=== PATIENT | female | born 1985 | race Caucasian/White ===

== ENCOUNTER 2022-09-11 14:34 | Emergency (ER) | payer MEDICAID, SELFPAY ==
[2022-09-11 14:38] VITALS: BP 144/81; PULSE 85; RESP 16; TEMP 36.6; O2SAT 99; BMI 25.8
--- NOTE | 2022-09-23 13:39 | DCPLANNER ---
TCM called patient due to no primary care physician - no answer at this time.
== END 2022-09-11 17:17 | disposition left against medical advice (07) ==
PROVIDERS: Emergency Provider Family Medicine
DX: Z53.21 Procedure and treatment not carried out due to patient leaving prior to being seen by health care provider (principal)

== ENCOUNTER 2022-09-11 20:37 | Emergency (ER) | payer MEDICAID, SELFPAY ==
[2022-09-11 21:05] VITALS: BP 161/88; PULSE 71; RESP 18; TEMP 36.8; O2SAT 100
--- NOTE | 2022-09-11 22:12 | W.ED.DENTAL ---
HPI - Dental/Oral General: Chief complaint: Dental/Oral Stated complaint: tooth pain, fever Time Seen by Provider: 09/11/22 21:45 History of Present Illness: Patient is a 37-year-old female who comes to the ED with dental pain. Dental pain started in the last 2 days and patient states that she broke a piece of her tooth off 2 days ago. Dental pain is located in the back upper and lower molars. She rates her pain a 10 out of 10. Patient has been calling around to get set up with a dentist. Associated symptoms: Denies fever(s) or odynophagia Review of Systems Const: Denies: fever(s), chills or fatigue Eyes: Denies: change in vision or eye discomfort ENMT: Reports: dental pain; Denies: throat pain, odynophagia, nasal discharge or nasal congestion Card: Denies: chest pain, palpitations, edema, swelling of feet/ankles, dyspnea on exertion or orthopnea Resp: Denies: dyspnea, productive cough or non-productive cough GI: Denies: abdominal pain, nausea, vomiting, diarrhea, constipation or hematochezia : Denies: flank pain, dysuria or hematuria Musc: Denies: neck pain, back pain or extremity swelling Skin/Breast: Denies: rash or new lesions Neuro: Denies: headache(s), numbness in extremities or weakness in extremities PFS ED PFSH: Medical History (Updated 09/12/22 @ 01:45 by MANUEL Titus) No pertinent family history Surgical History (Updated 09/12/22 @ 01:45 by MANUEL Titus) No pertinent past surgical history Physical Exam Const: COMMON NORMALS: patient oriented x3 HENMT: COMMON NORMALS: normocephalic HEAD & SCALP: normocephalic MOUTH: Normal oral and palatal mucosa present THROAT: posterior oropharynx normal and uvula midline Eye: GENERAL EYE: appearance normal, both eyes and all related structures Neck/C-Spine: COMMON NORMALS: supple GENERAL: Yes normal visual inspection Lymph: LYMPHATIC: no lymphadenopathy noted Resp: COMMON NORMALS: normal respiratory effort, No retractions, No use of accessory muscles and clear to auscultation bilaterally AUSCULTATION: clear to auscultation bilaterally Cardio: COMMON NORMALS: regular rate, regular rhythm, S1 normal heart sound present, S2 normal heart sound present, No gallops present (Cardio), No clicks present (Cardio), No murmurs present (Cardio) and Peripheral pulses 2+ throughout RATE: regular rate RHYTHM: regular rhythm HEART SOUNDS: S1 normal heart sound present and S2 normal heart sound present PERIPHERAL PULSES: Peripheral pulses 2+ throughout GI: COMMON NORMALS: Normal to inspection, nondistended, normoactive bowel sounds present, Soft to palpation, non-tender and no masses PALPATION: Yes Soft to palpation : COMMON NORMALS: Yes no CVA tenderness BLADDER/KIDNEY EXAM: Yes no CVA tenderness Back/Pelvis: COMMON NORMALS: no CVA tenderness Extremity: GENERAL: Yes normal exam except as noted Neuro: COMMON NORMALS: patient oriented x3 MOTOR EXAM: 5/5 motor strength present throughout Skin: COMMON NORMALS: no rashes or lesions noted GENERAL SKIN EXAM: no rashes or lesions noted and dry skin Course Vital Signs: Vital signs: Vital Signs Temperature 98.3 F 09/11/22 21:05 Pulse Rate 71 09/11/22 21:05 Respiratory Rate 18 09/11/22 21:05 Blood Pressure 161/88 09/11/22 21:05 Pulse Oximetry 100 09/11/22 21:05 Oxygen Delivery Me thod Room Air 09/11/22 21:05 MDM - Dental/Oral Medical Decision Making Patient is a 37-year-old female who comes to the ED with dental pain. Dental pain started in the last 2 days and patient states that she broke a piece of her tooth off 2 days ago. Dental pain is located in the back upper and lower molars. She rates her pain a 10 out of 10. Patient has been calling around to get set up with a dentist. Vitals are stable. Exam is benign. Patient was given dose of hydrocodone clindamycin here in the ED. Patient diagnosed with a tooth ache and was stable for discharge home and sent home with a prescription for ibuprofen 800 mg tablets and clindamycin. Return to ED precautions given. She was told to contact dentist to get appointment set up with them for further treatment of dental pain. Patient understood and agreed with plan. Discharge Plan Discharge Patient Disposition: Home Clinical Impression: Toothache Condition: Stable Prescriptions: New ibuprofen 800 mg tablet 800 mg PO Q8H PRN (Reason: pain) Qty: 20 0RF clindamycin HCl 150 mg capsule 300 mg PO QID 7 Days Qty: 56 0RF Lidocaine Viscous 2 % solution 1 applic mucous membrane Q6H PRN (Reason: pain) Qty: 100 0RF Rx Instructions: Swish 5 mL in mouth every 6 hours as needed pain Discharge Orders: Discharge ED (Routine); Ordered 09/11/22 Ordered By: Ha Khanna Discharge Diet: Regular Discharge Activity: Increase activity as tolerated Patient Instructions: Toothache (ED) Activity Restrictions/Additional Instructions: Follow-up with dentist as soon as possible to have dental pain treated. Take medications as prescribed. Return to the ER or your medical provider if condition worsens. Please read and understand discharge instructions. Thank you for choosing [facility] for your healthcare needs today. Please realize this is an emergency room and that we are providing you with a medical screening exam and this may not be complete and all inclusive of all the testing and or work up that you may need to determine your ailment or severity of your illness. It is very important that you follow up as instructed or that you return to the Emergency Department should you have concerns or if your condition changes or worsens in any way. Coding Level of Care Code ED [employer] Director for Derick Rivas
[2022-09-11] MEDS: HYDROcodone-acetaminophen 7.5-325 mg Tablet 1 TAB PO (22:20)
[2022-09-11] MEDS: clindamycin 150 mg Capsule 300 MG PO (22:20)
== END 2022-09-11 22:22 | disposition home or self-care (01) ==
PROVIDERS: Emergency Provider Physician Assistant
DX: K08.89 Other specified disorders of teeth and supporting structures (principal)
CPT/HCPCS: 99283

== ENCOUNTER 2023-01-05 11:34 | Emergency (ER) | payer MEDICAID, SELFPAY ==
[2023-01-05 11:36] VITALS: BP 139/85; PULSE 94; RESP 16; TEMP 36.8; O2SAT 98; BMI 31.1
--- NOTE | 2023-01-05 11:50 | W.ED.DENTAL ---
HPI - Dental/Oral General: Chief complaint: Dental/Oral Stated complaint: oral pain , broekn tooth Time Seen by Provider: 01/05/23 11:46 Source: patient Mode of arrival: ambulatory Limitations: no limitations History of Present Illness: Patient is a 37-year-old female presents to ED today with a complaint of tooth pain and possible infection. Patient states a few days ago her left upper back molar broke off and since then she has been experiencing significant discomfort. She feels like she has some swelling which makes her concerned for infection. She does not have a dentist. He has not noted any obvious facial swelling or neck swelling. She is eating, drinking, swallowing, controlling secretions normally. No fevers. No headache. MD Complaint: tooth pain and tooth injury Location: Tooth # (16) Teeth map: 1. Onset (ago): day(s) Duration: constant Severity: severe Relieving factors: nothing Exacerbating factors: chewing Context: history of dental caries and poor dental care Associated symptoms: Reports no associated symptoms; Denies ear or mastoid pain, fever(s) or odynophagia Treatment prior to arrival: oral analgesic Review of Systems Const: Denies: fever(s), chills, body aches, fatigue or malaise ENMT: Reports: dental pain; Denies: throat pain, enlarged tonsils, odynophagia, hoarseness, swelling of lips/tongue, oral sores, bleeding gums, ear or mastoid pain, nasal discharge, nasal congestion or sinus pain Card: Denies: chest pain GI: Denies: nausea or vomiting Musc: Denies: neck pain Neuro: Denies: headache(s) [facility] ED PFSH: Medical History No pertinent family history Surgical History No pertinent past surgical history Physical Exam Const: COMMON NORMALS: no acute distress, patient oriented x3, no limitations and alert HENMT: FACE & SINUS: normal facial exam; no erythema, no edema and no fluctuance TEETH & GINGIVA: Yes caries and Yes poor dentition TEETH & GINGIVA IMAGES: 1. fractured back molar THROAT: posterior oropharynx normal, tonsils normal and uvula midline Eye: GENERAL EYE: appearance normal, both eyes and all related structures Neck/C-Spine: COMMON NORMALS: full ROM and no lymphadenopathy GENERAL: Yes normal visual inspection, No anterior neck swelling and No submandibular swelling Resp: COMMON NORMALS: normal respiratory effort and clear to auscultation bilaterally AUSCULTATION: clear to auscultation bilaterally Cardio: COMMON NORMALS: regular rate and regular rhythm RATE: regular rate RHYTHM: regular rhythm Neuro: COMMON NORMALS: patient oriented x3 SENSORIUM/ORIENTATION: Yes alert Course Vital Signs: Vital signs: Vital Signs Temperature 98.3 F 01/05/23 11:36 Pulse Rate 94 01/05/23 11:36 Respiratory Rate 16 01/05/23 11:36 Blood Pressure 139/85 01/05/23 11:36 Pulse Oximetry 98 01/05/23 11:36 Oxygen Delivery Me thod Room Air 01/05/23 11:36 MDM - Dental/Oral Medical Decision Making Please on antibiotics and have her follow-up with a dentist as soon as possible. Return to ED precautions given. Discharge Plan Discharge Patient Disposition: Home Clinical Impression: Fracture of tooth, Toothache Condition: Stable Prescriptions: New Peridex 0.12 % mouthwash 15 ml buccal BID Qty: 473 0RF Rx Instructions: Swish 60 seconds then spit BID penicillin V potassium 500 mg tablet 500 mg PO Q8H 7 Days Qty: 21 0RF No Action ibuprofen 800 mg tablet 800 mg PO Q8H PRN (Reason: pain) Qty: 20 0RF Discharge Orders: Discharge ED (Routine); Ordered 01/05/23 Ordered By: Jaquelin Bradley Referrals: Kwabena Fernandez MD [Primary Care Provider] - Patient Instructions: Toothache (ED) Coding Level of Care Code ED Supply Chain Systems Manager for Derick Rivas
== END 2023-01-05 12:05 | disposition home or self-care (01) ==
PROVIDERS: Emergency Provider Physician Assistant; PCP Family Medicine
DX: M84.48XA Pathological fracture, other site, initial encounter for fracture (principal)
CPT/HCPCS: 99283

== ENCOUNTER 2023-01-17 11:23 | Emergency (ER) | payer MEDICAID, SELFPAY ==
[2023-01-17 11:32] VITALS: BP 141/93; PULSE 106; RESP 18; TEMP 36.7; O2SAT 96; BMI 33.2
--- NOTE | 2023-01-17 12:27 | ED_ITS ---
HPI - Dental/Oral General: Chief complaint: Dental/Oral Stated complaint: tooth pain Time Seen by Provider: 01/17/23 12:13 Source: patient Mode of arrival: ambulatory Limitations: no limitations History of Present Illness: 37-year-old female presents to the ER today for swelling of the left jaw and den shirley pain. Patient was seen couple of weeks ago for pain and swelling in the left upper teeth. Patient took amoxicillin and got an appointment with a dentist but the dentist could not see her until February 16 at 11 AM. Patient reports about a week ago the bottom started bothering her. Patient reports she has a hole in the back tooth. She has now developed swelling across the entire jaw and has pain radiating into her ear. She is scheduled tomorrow with ENT to be fitted for hearing aids and is concerned that that is going to cause issues with that. Denies any fever or chills. Patient is taking all [id number] medication she can. 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 Review of Systems General: Reports: 10 or more systems reviewed and unremarkable except in HPI and below PFSH ED PFSH: Medical History No pertinent family history Surgical History No pertinent past surgical history Physical Exam Const: COMMON NORMALS: average body habitus, patient oriented x3, no limitations, healthy appearing, alert and well nourished HENMT: COMMON NORMALS: normocephalic, atraumatic, external ears normal, Normal external nose present and oropharynx normal; dentition not normal and gingiva not normal HEAD & SCALP: normocephalic and atraumatic NOSE: Normal external nose present EXTERNAL EAR: Yes external ears normal TEETH & GINGIVA: Yes abnormal tooth and associated gingiva and Yes poor dentition TEETH & GINGIVA IMAGES: 1. fracture/hole in tooth- gingival swelling also noted OTHER: Patient noted to have mild swelling of the left lower jaw. Neck/C-Spine: COMMON NORMALS: full ROM OTHER: Mild lymphadenopathy noted to the left side in the area of jaw swelling. Resp: COMMON NORMALS: normal respiratory effort, No retractions and clear to auscultation bilaterally AUSCULTATION: clear to auscultation bilaterally Cardio: COMMON NORMALS: regular rate, regular rhythm and No murmurs present (Cardio) RATE: regular rate RHYTHM: regular rhythm Extremity: COMMON NORMALS: normal to inspection and full ROM Neuro: COMMON NORMALS: patient oriented x3 SENSORIUM/ORIENTATION: Yes alert Psych: COMMON NORMALS: mental status grossly normal and Normal thought process present THOUGHT PROCESS: Normal thought process present OTHER: tearful Skin: COMMON NORMALS: no rashes or lesions noted and no wounds GENERAL SKIN EXAM: no rashes or lesions noted Course ED course: Patient presents to the ER today for dental pain on the left lower jaw. Patient reports she has a fractured tooth with abscess. She has an appointment in January however the pain is worsening. She was seen 2 weeks ago for tooth in a different area. Patient was prescribed amoxicillin and finished that. She did make the dental appointment but it was more than a month out. Patient is scheduled for hearing aid placement tomorrow and is concerned the pain is going to cause issues. She is taking [id number] medications with minimal improvement. Patient is noted to have swelling of the left lower jaw. Vital Signs: Vital signs: Vital Signs Temperature 98.1 F 01/17/23 11:32 Pulse Rate 106 H 01/17/23 11:32 Respiratory Rate 18 01/17/23 11:32 Blood Pressure 141/93 01/17/23 11:32 Pulse Oximetry 96 01/17/23 11:32 Oxygen Delivery Me thod Room Air 01/17/23 11:32 MDM - Dental/Oral Medical Decision Making Patient recently finished amoxicillin. This all began slightly after finishing the amoxicillin. We will start patient on clindamycin. We will also send in Toradol for pain. Patient can take Tylenol alternating with the Toradol. Apply ice. Use mouthwash as previously prescribed. Keep dental appointment and follow-up. Return to the ER with any new or worsening symptoms. Patient verbalized understanding and was in agreement with the treatment plan. No radiology studies performed this visit Critical Care Time Critical Care Time: Critical Care Time: No Discharge Plan Discharge Patient Disposition: Home Clinical Impression: Dental abscess Fracture of tooth Qualifiers: Encounter type: initial encounter Fracture type: closed Qualified Code(s): S02.5XXA - Fracture of tooth (traumatic), initial encounter for closed fracture Condition: Stable Prescriptions: New clindamycin HCl 300 mg capsule 300 mg PO Q6H 7 Days Qty: 28 0RF ketorolac 10 mg tablet 10 mg PO Q8H PRN (Reason: pain) 3 Days Qty: 12 0RF No Action Peridex 0.12 % mouthwash 15 ml buccal BID Qty: 473 0RF Rx Instructions: Swish 60 seconds then spit BID ibuprofen 800 mg tablet 800 mg PO Q8H PRN (Reason: pain) Qty: 20 0RF Discharge Orders: Discharge ED (Routine); Ordered 01/17/23 Ordered By: Ginny San Referrals: Kwabena Fernandez MD [Primary Care Provider] - Discharge Diet: Soft Mechanical Discharge Activity: Resume usual activity Patient Instructions: Opioid Safety, Pain Management Activity Restrictions/Additional Instructions: Take clindamycin as prescribed. Take ketorolac for the next few days. Okay to also take Tylenol alternated with the ketorolac for pain. Apply ice to reduce swelling. Use mouthwash as previously prescribed. Follow-up with dentist at already scheduled appointment. Coding Level of Care Code ED Commodity Loan Clerk for Derick Rivas
== END 2023-01-17 12:38 | disposition home or self-care (01) ==
PROVIDERS: Emergency Provider Physician Assistant; PCP Family Medicine
DX: K04.7 Periapical abscess without sinus (principal); M84.48XA Pathological fracture, other site, initial encounter for fracture
CPT/HCPCS: 99284

== ENCOUNTER 2024-01-31 15:30 | Emergency (ER) | payer SELFPAY ==
[2024-01-31 15:45] VITALS: BP 153/66; PULSE 90; RESP 18; TEMP 36.7; O2SAT 98; BMI 27.9
--- NOTE | 2024-01-31 15:47 | ECG_ITS ---
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
--- NOTE | 2024-01-31 16:57 | XRR_ITS ---
PROCEDURE INFORMATION: Exam: XR Chest Exam date and time: 01/31/2024 5:09 PM Age: 38 years old Clinical indication: Cough and shortness of breath; Additional info: Congestion/cough TECHNIQUE: Imaging protocol: Radiologic exam of the chest. Views: 1 view. COMPARISON: No relevant prior studies available. FINDINGS: Lungs: Peribronchial wall thickening. No consolidation. Pleural spaces: Unremarkable. No pleural effusion. No pneumothorax. Heart/Mediastinum: Unremarkable. No cardiomegaly. Bones/joints: Unremarkable. XR/XR chest 1V portable [id number] IMPRESSION: Sequela of bronchitis.
[2024-01-31 19:31] VITALS: BP 146/87; PULSE 78; O2SAT 99
[2024-01-31 19:33] VITALS: O2SAT 98
[2024-01-31] MEDS: dexamethasone 10 mg/mL INJ IM (20:09)
--- NOTE | 2024-01-31 20:13 | ED_ITS ---
HPI - COVID General: Chief Complaint: COVID symptoms Stated Complaint: congestion (2wks) Time Seen by Provider: 01/31/24 19:21 Source: patient Mode of arrival: ambulatory Limitations: no limitations Triage information: Has fever, cough or shortness of breath . Exposure to COVID + person last 14 days History of Present Illness: Patient is a 38-year-old female who presents to the emergency department complaining of a week and a half of chest congestion. She states that she was exposed to multiple sick contacts at home, and while they have since recovered her symptoms have lingered. States that she is starting to cough, though it is nonproductive and she feels like there is stuff stuck in her chest. She is also reporting nasal congestion that is causing ear pain. She has only taken [id number] DayQuil and a mucolytic that she does not know the name of. Does not report a history of allergies and does not take anything for allergies. She states that she is feeling short of breath though she thinks it is from the congestion. No chest pain, fevers, chills, or other symptoms reported at this time. MD complaint: other (Known exposure to unspecified viral illness) Prior covid testing: no COVID 19 common symptoms: positive non-productive cough, dyspnea and nasal congestion; negative fever(s), chills, fatigue, headache(s), throat pain, nausea, vomiting or diarrhea COVID 19 other sytmptoms: negative chest pain Onset (ago): week(s) Severity: mild COVID Results: Coronavirus (PCR) Negative (Negative) 01/31/24 19:28 Related Data Previous Rx's Medication Instructions Recorded ibuprofen 800 mg tablet 800 mg PO Q8H PRN pain #20 tabs 09/11/22 chlorhexidine gluconate 0.12 % 15 ml buccal BID #473 mL 01/05/23 mouthwash (Peridex) albuterol sulfate 90 mcg/actuation 1 inh inhalation Q6H PRN shortness 01/31/24 aerosol inhaler of breath or wheezing #6.7 grams cetirizine 10 mg tablet (Zyrtec) 10 mg PO DAILY PRN allergy 01/31/24 symptoms #20 tabs fluticasone propionate 50 2 spray intranasal DAILY PRN nasal 01/31/24 mcg/actuation nasal congestion #16 grams spray,suspension Allergies Allergy/AdvReac Type Severity Reaction Status Date / Time No Known Allergies Allergy Verified 01/31/24 15:48 Review of Systems General: Reports: 10 or more systems reviewed and unremarkable except in HPI and below Const: Denies: fever(s), chills or fatigue Eyes: Denies: change in vision ENMT: Reports: ear or mastoid pain and nasal congestion; Denies: throat pain or nasal discharge Card: Denies: chest pain, palpitations, swelling of feet/ankles or lightheadedness Resp: Reports: dyspnea, non-productive cough and chest congestion; Denies: wheezing GI: Denies: abdominal pain, nausea, vomiting, diarrhea or constipation : Denies: flank pain, difficulty voiding, dysuria or urinary frequency Musc: Denies: neck pain, back pain or joint pain Skin/Breast: Denies: rash Neuro: Denies: headache(s), numbness in extremities or weakness in extremities PFSH ED PFSH: Medical History No pertinent family history Surgical History No pertinent past surgical history Physical Exam Const: COMMON NORMALS: no acute distress and no limitations GENERAL APPEARANCE: cooperative, comfortable and well developed ORIENTATION/CONSCIOUSNESS: Yes awake HENMT: COMMON NORMALS: normocephalic, atraumatic, hearing grossly normal bilaterally, external ears normal, EAC's normal, Normal external nose present, Normal nasal mucous membranes and turbinates present, moist oral mucous membranes and oropharynx normal HEAD & SCALP: normocephalic and atraumatic NOSE: Normal external nose present and Normal nasal mucous membranes and turbinates present EXTERNAL EAR: Yes external ears normal EXTERNAL AUDITO RY CANAL: EAC's normal TYMPANIC MEMBRANE: TM abnormal TM laterality: bilateral bulging Eye: COMMON NORMALS: Equal, round and reactive pupils present, EOMs intact bilaterally and conjunctivae normal CONJUNCTIVA: Yes conjunctivae normal PUPIL: Yes Equal, round and reactive pupils present Neck/C-Spine: COMMON NORMALS: full ROM, no lymphadenopathy, supple and no JVD Resp: COMMON NORMALS: normal respiratory effort, No retractions, No use of accessory muscles and clear to auscultation bilaterally EFFORT & INSPECTION: Yes Actively coughing non-productive AUSCULTATION: clear to auscultation bilaterally Cardio: COMMON NORMALS: no JVD, regular rate, regular rhythm, No clicks present (Cardio), No murmurs present (Cardio) and No rub (Cardio) RATE: regular rate RHYTHM: regular rhythm GI: COMMON NORMALS: Normal to inspection, nondistended, normoactive bowel sounds present, Soft to palpation and non-tender AUSCULTATION: Yes normoactive bowel sounds PALPATION: Yes Soft to palpation RECTAL EXAM: deferred Extremity: COMMON NORMALS: normal to inspection, full ROM and capillary refill normal Psych: COMMON NORMALS: mental status grossly normal and Normal thought process present THOUGHT PROCESS: Normal thought process present Skin: COMMON NORMALS: no rashes or lesions noted GENERAL SKIN EXAM: no rashes or lesions noted Course Vital Signs: Vital signs: Vital Signs Temperature 98.0 F 01/31/24 15:45 Pulse Rate 73 01/31/24 20:28 Respiratory Rate 18 01/31/24 20:28 Blood Pressure 146/87 01/31/24 19:31 Pulse Oximetry 100 01/31/24 20:28 Oxygen Delivery Me thod Room Air 01/31/24 20:28 [facility] Medical Decision Making Patient seen for a week and a half of upper respiratory symptoms, after exposure to viral illness. States her primary complaint is congestion in her chest and face, has only taken DayQuil and a mucolytic [id number]. X-ray today showed evidence of a bronchitis, likely viral due to her nonproductive cough and normal vitals. She also notes significant improvement after receiving DuoNeb treatment here and receiving a shot of Decadron, so she is encouraged to treat symptomatically at home and return if she starts having production of her cough or other concerning symptoms of illness. Will give her albuterol inhaler to use as needed, as well as Flonase and Zyrtec. Return precautions given. Lab Data Radiology Impressions Chest X-Ray 01/31/24 16:57 IMPRESSION: Sequela of bronchitis. Laboratory Results Coronavirus (PCR) Negative (Negative) 01/31/24 19:28 Influenza A (PCR) Negative (Negative) 01/31/24 19:28 Influenza Type B (PCR) Negative (Negative) 01/31/24 19:28 RSV (PCR) Negative (Negative) 01/31/24 19:28 Coronavirus (PCR) Negative (Negative) 01/31/24 19:28 All radiology interpretation(s) finalized by discharge Discharge Plan Discharge Patient Disposition: Home Clinical Impression: Viral bronchitis Reactive airway disease Qualifiers: Asthma severity: mild Asthma persistence: intermittent Asthma complication type: uncomplicated Qualified Code(s): J45.20 - Mild intermittent asthma, uncomplicated Condition: Stable Prescriptions: New fluticasone propionate 50 mcg/actuation spray,suspension 2 spray intranasal DAILY PRN (Reason: nasal congestion) Qty: 16 0RF Rx Instructions: administer into each nostril cetirizine [Zyrtec] 10 mg tablet 10 mg PO DAILY PRN (Reason: allergy symptoms) Qty: 20 0RF albuterol sulfate 90 mcg/actuation HFA aerosol inhaler 1 inh inhalation Q6H PRN (Reason: shortness of breath or wheezing) Qty: 6.7 0RF No Action Peridex 0.12 % mouthwash 15 ml buccal BID Qty: 473 0RF Rx Instructions: Swish 60 seconds then spit BID ibuprofen 800 mg tablet 800 mg PO Q8H PRN (Reason: pain) Qty: 20 0RF Discharge Orders: Discharge ED (Routine); Ordered 01/31/24 Ordered By: Claus Wan Discharge Diet: Usual diet Discharge Activity: Increase activity as tolerated Patient Instructions: Reactive Airways Disease (ED) Activity Restrictions/Additional Instructions: Use inhaler as needed. Flonase for nasal congestion and take Zyrtec for allergy relief. With any worsening of condition or new or concerning symptoms, please return or follow-up with your primary care provider as discussed. Coding Level of Care Code ED Snap Attacher for Derick Rivas
[2024-01-31 20:14] LABS: Covid PCR NEGATIVE (Negative); Influenza A NEGATIVE (Negative); Influenza B NEGATIVE (Negative); Respiratory Syncytial Virus Ce NEGATIVE (Negative)
[2024-01-31] MEDS: ipratropium-albuterol 3 mL Neb INHALATION (20:24)
[2024-01-31 20:25] VITALS: PULSE 78; RESP 18; O2SAT 98
[2024-01-31 20:28] VITALS: PULSE 73; RESP 18; O2SAT 100
[2024-01-31 21:15] VITALS: BP 146/87; PULSE 82; O2SAT 99
== END 2024-01-31 21:16 | disposition home or self-care (01) ==
PROVIDERS: Physician Assistant; Emergency Provider Physician Assistant
DX: J45.20 Mild intermittent asthma, uncomplicated (principal); J20.8 Acute bronchitis due to other specified organisms; Z11.52 Encounter for screening for COVID-19
CPT/HCPCS: 0241U; 71045; 93005; 94640; 96372; 99284; J1100